=== PATIENT | female | born 1950 | race Caucasian/White ===

== ENCOUNTER 2018-08-29 09:54 | Inpatient (IN) | payer MEDICARE, OTHER ==
[~2018-08-29] VITALS: Ht 172.7 cm; Wt 92.4 kg
[2018-08-29] VITALS (9 sets, daily range): BP systolic 88–147; BP diastolic 46–68; PULSE 78–98; RESP 18–36; Ht 172.7 cm; Wt 92.4 kg
[2018-08-29] MEDS ORDERED: FUROSEMIDE 40 MG INJ IV STA (10:09)
[2018-08-29] MEDS ORDERED: NITROGLYCERIN 50 MG/D5W (PMX) 250 ML IV STA (10:09)
[2018-08-29] MEDS ORDERED: ALBUTEROL 0.083% (NEB) 2.5 MG/3 ML AMP HHN STA (10:11)
[2018-08-29] MEDS ORDERED: IPRATROPIUM (NEB) 0.5 MG/2.5 ML AMP HHN ONE (10:30)
[2018-08-29] MEDS ORDERED: ARIP5TAB14 PO (10:51)
[2018-08-29] MEDS ORDERED: POLY15DR25 BOTH EYES (10:58)
[2018-08-29] MEDS ORDERED: AZIT250T13 PO (11:00)
[2018-08-29] MEDS ORDERED: BENZ1LOZ52 MM (11:01)
[2018-08-29] MEDS ORDERED: [UNRECOGNIZED DRUG - CODE] BOTH EYES (11:01)
[2018-08-29] MEDS ORDERED: CEFEPIME 2GM/50 ML (PMX) 50 ML IVPB STA (11:02)
[2018-08-29] MEDS ORDERED: CLON-379 PO (11:02)
[2018-08-29] MEDS ORDERED: CYAN100092 IJ (11:03)
[2018-08-29] MEDS ORDERED: DIC20 PO (11:05)
[2018-08-29] MEDS ORDERED: VENL150C PO (11:06)
[2018-08-29] MEDS ORDERED: BISA10SU55 RC (11:06)
[2018-08-29] MEDS ORDERED: BISA-57 PO (11:06)
[2018-08-29] MEDS ORDERED: GABA300C16 PO (11:07)
[2018-08-29] MEDS ORDERED: LACTINEX PO (11:08)
[2018-08-29] MEDS ORDERED: LACT20SO2 PO (11:09)
[2018-08-29] MEDS ORDERED: LINA290C PO (11:10)
[2018-08-29] MEDS ORDERED: FURO40TA4 PO (11:10)
[2018-08-29] MEDS ORDERED: LORA0.5T PO ×2 (11:12)
[2018-08-29] MEDS ORDERED: MECL-77 PO (11:13)
[2018-08-29] MEDS ORDERED: LOSA100T15 PO (11:13)
[2018-08-29] MEDS ORDERED: MAGN400O19 PO (11:14)
[2018-08-29] MEDS ORDERED: POLY17PO6 PO (11:14)
[2018-08-29] MEDS ORDERED: MORP10DI10 SL (11:16)
[2018-08-29] MEDS ORDERED: MULTI PO (11:16)
[2018-08-29] MEDS ORDERED: HYDR-4012 PO (11:18)
[2018-08-29] MEDS ORDERED: AMLO5TAB4 PO (11:19)
[2018-08-29] MEDS ORDERED: POTA10TA37 PO (11:19)
[2018-08-29] MEDS ORDERED: PROT946L PO (11:20)
[2018-08-29] MEDS ORDERED: METO10TA3 PO (11:20)
[2018-08-29] MEDS ORDERED: GUAI5SYR2 PO (11:21)
[2018-08-29] MEDS ORDERED: LEVO-86 PO (11:22)
[2018-08-29] MEDS ORDERED: SIME80TA60 PO (11:22)
[2018-08-29] MEDS ORDERED: CALC600T24 PO (11:23)
[2018-08-29] MEDS ORDERED: ASCO500C7 PO (11:24)
[2018-08-29] MEDS ORDERED: ACET-2047 PO (11:24)
[2018-08-29] MEDS ORDERED: ONDA4TAB8 PO (11:25)
[2018-08-29] MEDS ORDERED: ALBU2.5V3 NEB (11:27)
--- NOTE | 2018-08-29 11:29 | ERD ---
ER Documentation Chief Complaint Chief Complaint BIB RA FOR EVAL OF SOB. CPAP ON ARRIVAL HPI This is a 68-year-old female who was brought in by ambulance for acute shortness of breath. She is presenting from [facility], she is a DNR patient, with selective treatments, which include antibiotics. In the field she was given nit roglycerin, as well as being started on positive pressure ventilation. She had no notable fever, history was limited secondary to acuity of her condition. ROS All systems reviewed and are negative except as per history of present illness. Medications Home Meds Reported Medications Ascorbic Acid* (Vitamin C*) 500 Mg Capsule.sa, 500 MG PO DAILY, CAP 08/29/18 Acetaminophen* (Acetaminophen*) 650 Mg Tablet, 650 MG PO Q4 PRN for PAIN LEVEL 1-3, #30 TAB AND FEVER 08/29/18 Calcium Carbonate* (Calcium Carbonate*) 600 MG Ca Tab, 600 MG PO DAILY, TAB 08/29/18 Levothyroxine Sodium* (Synthroid*) 100 Mcg Tablet, 100 MCG PO BEFORE BREAKFAST, #30 TAB 08/29/18 Simethicone* (Mylicon*) 80 Mg Tab, 80 MG PO Q6H PRN for DISTENSION/GAS/BLOATING, TAB 08/29/18 Guaifenesin-Dextromethorphan* (Robitussin* DM) 100MG/10MG/5ML Syrup, 10 ML PO Q4H PRN for COUGH, ML SUGAR FREE 08/29/18 Metoclopramide Hcl* (Metoclopramide Hcl*) 10 Mg Tablet, 10 MG PO BID PRN for NAUSEA AND OR VOMITING, TAB 08/29/18 Protein Supplement (Promod) 946 Ml Liquid, 30 ML PO BID 08/29/18 Potassium Chloride* (K-Dur*) 10 Meq Tab.prt.sr, 10 MEQ PO DAILY, TAB STOP 09-03-08/29/18 Amlodipine Besylate* (Norvasc*) 5 Mg Tablet, 5 MG PO DAILY, TAB HOLD FOR SBP IS <110 OR HR IS <60 08/29/18 Hydrocodone/Acetaminophen ([place] 7.5-325 Tablet) 1 Each Tablet, 1 EACH PO Q6 PRN for MODERATE PAIN 4-7, TAB 08/29/18 Multivitamins* (Theragran*) 1 Tab Tab, 1 TAB PO DAILY, TAB 08/29/18 Morphine Sulfate* (Morphine* Liq) 10 Mg/0.5 Ml Disp.syrin, 5 MG SL Q2H PRN for PAIN, ML 08/29/18 Polyethylene Glycol* (Miralax*) 17 Gm Powd.pack, 17 GM PO DAILY PRN for CONSTIPATION, #30 PACKET 08/29/18 Magnesium Hydroxide* (Milk Of Magnesia*) 400 Mg/5 Ml Oral.susp, 30 ML PO DAILY PRN for CONSTIPATION, ML 08/29/18 Meclizine Hcl* (Meclizine Hcl*) 25 Mg Tablet, 25 MG PO Q12 PRN for DIZZINESS, TAB 08/29/18 Losartan Potassium* (Losartan Potassium*) 100 Mg Tablet, 100 MG PO DAILY, TAB HOLD IF SBP IS <110 OR HR IS <60 08/29/18 Lorazepam* (Lorazepam*) 0.5 Mg Tablet, 0.5 MG PO Q4H WHILE AWAKE PRN for ANXIETY, TAB STOP 09-10-18 08/29/18 Lorazepam* (Lorazepam*) 0.5 Mg Tablet, 0.5 MG PO HS PRN for SLEEP, TAB 08/29/18 Linaclotide (LINZESS) 290 Mcg Capsule, 290 MCG PO DAILY, #30 CAP 08/29/18 Furosemide* (Furosemide*) 40 Mg Tablet, 40 MG PO DAILY, TAB STOP 09-02-18 08/29/18 Lactulose* (Lactulose*) 20 Gm/30 Ml Solution, 20 GM PO TID PRN for CONSTIPATION, ML 08/29/18 Lactobacillus Acidophilus* (Lactinex*) 1 Tab Chew, 1 TAB PO BID, TAB 08/29/18 Gabapentin* (Gabapentin*) 300 Mg Capsule, 300 MG PO TID, #90 CAP 08/29/18 Venlafaxine Hcl* (Effexor XR*) 150 Mg Cap.sr.24h, 150 MG PO QHS, CAP 08/29/18 Bisacodyl* (Dulcolax*) 5 Mg Tablet.dr, 5 MG PO BID, TAB 08/29/18 Bisacodyl (Dulcolax) 10 Mg Supp.rect, 10 MG RC DAILY PRN for CONSTIPATION, SUPP.RECT 08/29/18 Dicyclomine HCl (Dicyclomine HCl) 20 Mg Tablet, 20 MG PO QID 08/29/18 Cyanocobalamin (Vitamin B-12) (Cyanocobalamin Injection) 1,000 Mcg/1 Ml Vial, 1000 MCG IJ ONCE A MONTH, VIAL 08/29/18 Clonidine Hcl* (Clonidine Hcl*) 0.1 Mg Tab, 0.1 MG PO Q6 PRN for ELEVATED BLOOD PRESSURE, TAB GIVE IF SBP IS >165 08/29/18 Benzocaine/Menthol* (Cepacol* Sore Throat Lozenges) 1 Each Lozenge, 1 EACH MM Q4 PRN for SORE THROAT, LOZENGE 08/29/18 Hypromellose (EQ GENTLE) 30 Ml Drops, 1 DRP BOTH EYES BID PRN for DRY EYES, BOTTLE 08/29/18 Azithromycin* (Azithromycin*) 250 Mg Tablet, 250 MG PO DAILY, #4 TAB START 08-28-18 STOP 09-01-18 08/29/18 Aripiprazole* (Abilify*) 5 Mg Tab, 5 MG PO DAILY, #30 TAB 08/29/18 Discontinued Reported Medications Polyvinyl Alcohol (Tears Again) 15 Ml Drops, 1 DRP BOTH EYES BID PRN for DRY EYES, BOTTLE 08/29/18 Allergies Allergies: Coded Allergies: metronidazole (Verified Allergy, Unknown, 08/29/18) Uncoded Allergies: MILK PRODUCTS (Allergy, Unknown, 08/29/18) PMhx/Soc Hx Neurological Disorder: No Hx Respiratory Disorders: No Hx Cardiac Disorders: No Hx Psychiatric Problems: Yes (Anxiety, Depression) Hx Miscellaneous Medical Probl: Yes (Hypothyroidism, polyneuropathy, Pancreatic CA?) Smoking Status: Unknown if ever smoked Physical Exam Vitals Vital Signs Date Temp Pulse Resp B/P (MAP) Pulse Ox O2 O2 Flow FiO2 Time Delivery Rate 08/29/18 110 25 11:09 08/29/18 116 96 100 10:15 08/29/18 99.6 110 30 110/40 94 09:59 (63) Physical Exam Const: Patient appears severely distress, arrived on BiPAP machine Head: Atraumatic Eyes: Normal Conjunctiva ENT: Normal External Ears, Nose and Mouth. Neck: Full range of motion. No meningismus. Resp: Rales noted bilaterally, no expiratory wheeze Cardio: Tachycardia with regular rhythm, no murmurs, positive for JVD Abd: Soft, non tender, non distended. Normal bowel sounds Skin: No petechiae or rashes Back: No midline or flank tenderness Ext: No cyanosis, 1+ pitting edema Neur: Awake and alert Psych: Normal Mood and Affect Result Diagram: 08/29/18 1005 08/29/18 1005 Results 24 hrs Laboratory Tests Test 08/29/18 10:05 08/29/18 10:18 White Blood Count 30.5 10^3/ul Red Blood Count 3.65 10^6/ul Hemoglobin 9.6 g/dl Hematocrit 31.0 % Mean Corpuscular Volume 84.9 fl Mean Corpuscular Hemoglobin 26.3 pg Mean Corpuscular Hemoglobin Concent 31.0 g/dl Red Cell Distribution Width 16.2 % Platelet Count 280 10^3/UL Mean Platelet Volume 9.3 fl Immature Granulocytes % 4.800 % Neutrophils % 79.2 % Lymphocytes % 9.7 % Monocytes % 5.8 % Eosinophils % 0.0 % Basophils % 0.5 % Nucleated Red Blood Cells % 0.0 /100WBC Immature Granulocytes # 1.450 10^3/ul Neutrophils # 24.2 10^3/ul Lymphocytes # 3.0 10^3/ul Monocytes # 1.8 10^3/ul Eosinophils # 0.0 10^3/ul Basophils # 0.2 10^3/ul Nucleated Red Blood Cells # 0.0 10^3/ul Prothrombin Time 18.3 Sec Prothrombin Time Ratio 1.4 INR International Normalized Ratio 1.51 Activated Partial Thromboplast Time 46.3 Sec Urine Color YELLOW Urine Clarity CLEAR Urine pH 5.0 Urine Specific [place] 1.015 Urine Ketones NEGATIVE mg/dL Urine Nitrite NEGATIVE mg/dL Urine Bilirubin NEGATIVE mg/dL Urine Urobilinogen 2+ mg/dL Urine Leukocyte Esterase NEGATIVE La[place]/ul Urine Hemoglobin NEGATIVE mg/dL Urine Glucose NEGATIVE mg/dL Urine Total Protein NEGATIVE mg/dl Sodium Level 130 mmol/L Potassium Level 3.9 mmol/L Chloride Level 97 mmol/L Carbon Dioxide Level 21 mmol/L Anion Gap 12 Blood Urea Nitrogen 26 mg/dl Creatinine 1.07 mg/dl Est Glomerular Filtrat Rate mL/min 51 mL/min Glucose Level 137 mg/dl Calcium Level 8.2 mg/dl Total Bilirubin 0.9 mg/dl Direct Bilirubin 0.00 mg/dl Indirect Bilirubin 0.9 mg/dl Aspartate Amino Transf (AST/SGOT) 99 IU/L Alanine Aminotransferase (ALT/SGPT) 43 IU/L Alkaline Phosphatase 567 IU/L Troponin I Pending B-Type Natriuretic Peptide 2110 PG/ML Total Protein 7.6 g/dl Albumin 3.1 g/dl Globulin 4.50 g/dl Albumin/Globulin Ratio 0.68 POC Venous Lactate 3.6 mmol/L Current Medications Medications Dose Sig/Otoniel Start Time Status Last (Trade) Ordered Route PRN Stop Time Admin Dose Reason Admin 250 ml @ ONCE STAT 08/29/18 08/29/18 Nitroglycerin 12 mls/hr IV 10:09 10:34 / Dextrose 08/30/18 06:58 Furosemide 40 mg ONCE STAT 08/29/18 DC 08/29/18 (Lasix) IV 10:09 08/29/18 10:34 10:11 Albuterol 5 mg ONCE STAT 08/29/18 DC 08/29/18 (Proventil HHN 10:11 08/29/18 11:02 0.083% (Neb)) 10:34 Ipratropium 0.5 mg ONCE ONCE 08/29/18 DC 08/29/18 [place] HHN 10:30 08/29/18 11:02 (Atrovent 10:33 0.02% (Neb)) Cefepime HCl 50 ml @ ONCE STAT 08/29/18 100 mls/hr IVPB 11:02 08/29/18 11:31 Vancomycin 250 ml @ ONCE ONCE 08/29/18 HCl 125 mls/hr IVPB 11:30 08/29/18 13:29 Procedures/MDM This is a 68-year-old female presents for evaluation of shortness of breath. History and physical was concerning for respiratory distress secondary to acute congestive heart failure. She was given nitroglycerin in the field, her blood pressure was initially 101 systolic, she was started on IV Lasix, and was also started on nitroglycerin drip once her blood pressure had increased to 140 systolic. I noted that she had a leukocytosis of 30, and a positive lactate, given her risk factors she was then treated empirically for infection with vancomycin and cefepime. Given her presentation of volume overloaded status, I did not give her 30 cc/kg of IV fluids, as I feel that this would be detrimental to her. Patient will be continued on BiPAP, and a nitroglycerin drip as needed. Accepting Care Team: Current data and ongoing care discussed. Primary: [place] Consulting: None Outstanding Data: none Departure Diagnosis: Primary Impression: Shortness of breath Additional Impressions: CHF (congestive heart failure) Heart failure type: unspecified Heart failure chronicity: unspecified Qualified Codes: I50.9 - Heart failure, unspecified Respiratory distress Condition: Serious ORDAZ,BRISSA THRASHER Aug 29, 2018 11:29
[2018-08-29] MEDS ORDERED: VANCOMYCIN 1 GM (PMX) 250 ML IVPB ONE (11:30)
[2018-08-29] MEDS ORDERED: ACETAMINOPHEN 325 MG TAB PO PRN (12:00)
[2018-08-29] MEDS ORDERED: ONDANSETRON 4 MG INJ IV PRN (12:00)
--- NOTE | 2018-08-29 12:07 | CONS ---
Assessment/Plan Assessment/Plan Assessment/Plan (Daily) A/R: 1. sepsis, possibly pneumonia 2- Hx of hypothyroidism 3- HTN 4. DNR status. Continue current supportive care. Continue BiPAP. Obtain follow-up chest x-ray 24 hours. Continue current antimicrobial regimen. Consultation Date/Type/Reason Admit Date/Time Date of Consultation: Aug 29, 2018 Type of Consult Pulmonary Patient is a 68-year-old lady who has been transferred from [facility] with shortness of breath. Upon evaluation in the ER chest x-ray was done which is showing possible pneumonia in conjunction with significant elevation in leukocytosis. Patient has been placed on BiPAP with improvement in symptoms. Past medical history; 1. Dementia. 2. Hypertension. 3. Hypothyroidism. Medications; reviewed. Allergies; Flagyl. Family history; noncontributory. Occupational history; noncontributory. Review of systems; limited review of system could be obtained. Patient complains of shortness of breath. Denies any chest pain, fever, nausea, vomiting. Abdominal pain. General exam; elderly woman, on BiPAP. Awake. Appears in mild distress. Date/Time of Note DATE: 08/29/18 TIME: 12:03 Past Medical History Home Meds Reported Medications Albuterol Sulfate* (Albuterol Sulfate* Neb) 0.083%-3 Ml Neb, 2.5 MG NEB Q2H PRN for WHEEZING AND SOB, #30 VIAL 08/29/18 Ondansetron Hcl* (Zofran*) 4 Mg Tablet, 4 MG PO Q4 PRN for NAUSEA AND OR VOMITING, TAB 08/29/18 Ascorbic Acid* (Vitamin C*) 500 Mg Capsule.sa, 500 MG PO DAILY, CAP 08/29/18 Acetaminophen* (Acetaminophen*) 650 Mg Tablet, 650 MG PO Q4 PRN for PAIN LEVEL 1-3, #30 TAB AND FEVER 08/29/18 Calcium Carbonate* (Calcium Carbonate*) 600 MG Ca Tab, 600 MG PO DAILY, TAB 08/29/18 Levothyroxine Sodium* (Synthroid*) 100 Mcg Tablet, 100 MCG PO BEFORE BREAKFAST, #30 TAB 08/29/18 Simethicone* (Mylicon*) 80 Mg Tab, 80 MG PO Q6H PRN for DISTENSION/GAS/BLOATING, TAB 08/29/18 Guaifenesin-Dextromethorphan* (Robitussin* DM) 100MG/10MG/5ML Syrup, 10 ML PO Q4H PRN for COUGH, ML SUGAR FREE 08/29/18 Metoclopramide Hcl* (Metoclopramide Hcl*) 10 Mg Tablet, 10 MG PO BID PRN for NAUSEA AND OR VOMITING, TAB 08/29/18 Protein Supplement (Promod) 946 Ml Liquid, 30 ML PO BID 08/29/18 Potassium Chloride* (K-Dur*) 10 Meq Tab.prt.sr, 10 MEQ PO DAILY, TAB STOP 09-03-18 08/29/18 Amlodipine Besylate* (Norvasc*) 5 Mg Tablet, 5 MG PO DAILY, TAB HOLD FOR SBP IS <110 OR HR IS <60 08/29/18 Hydrocodone/Acetaminophen ([place] 7.5-325 Tablet) 1 Each Tablet, 1 EACH PO Q6 PRN for MODERATE PAIN 4-7, TAB 08/29/18 Multivitamins* (Theragran*) 1 Tab Tab, 1 TAB PO DAILY, TAB 08/29/18 Morphine Sulfate* (Morphine* Liq) 10 Mg/0.5 Ml Disp.syrin, 5 MG SL Q2H PRN for PAIN, ML 08/29/18 Polyethylene Glycol* (Miralax*) 17 Gm Powd.pack, 17 GM PO DAILY PRN for CONSTIPATION, #30 PACKET 08/29/18 Magnesium Hydroxide* (Milk Of Magnesia*) 400 Mg/5 Ml Oral.susp, 30 ML PO DAILY PRN for CONSTIPATION, ML 08/29/18 Meclizine Hcl* (Meclizine Hcl*) 25 Mg Tablet, 25 MG PO Q12 PRN for DIZZINESS, TAB 08/29/18 Losartan Potassium* (Losartan Potassium*) 100 Mg Tablet, 100 MG PO DAILY, TAB HOLD IF SBP IS <110 OR HR IS <60 08/29/18 Lorazepam* (Lorazepam*) 0.5 Mg Tablet, 0.5 MG PO Q4H WHILE AWAKE PRN for ANXIETY, TAB STOP 09-10-18 08/29/18 Lorazepam* (Lorazepam*) 0.5 Mg Tablet, 0.5 MG PO HS PRN for SLEEP, TAB 08/29/18 Linaclotide (LINZESS) 290 Mcg Capsule, 290 MCG PO DAILY, #30 CAP 08/29/18 Furosemide* (Furosemide*) 40 Mg Tablet, 40 MG PO DAILY, TAB STOP 09-02-18 08/29/18 Lactulose* (Lactulose*) 20 Gm/30 Ml Solution, 20 GM PO TID PRN for CONSTIPATION, ML 08/29/18 Lactobacillus Acidophilus* (Lactinex*) 1 Tab Chew, 1 TAB PO BID, TAB 08/29/18 Gabapentin* (Gabapentin*) 300 Mg Capsule, 300 MG PO TID, #90 CAP 08/29/18 Venlafaxine Hcl* (Effexor XR*) 150 Mg Cap.sr.24h, 150 MG PO QHS, CAP 08/29/18 Bisacodyl* (Dulcolax*) 5 Mg Tablet.dr, 5 MG PO BID, TAB 08/29/18 Bisacodyl (Dulcolax) 10 Mg Supp.rect, 10 MG RC DAILY PRN for CONSTIPATION, SUPP.RECT 08/29/18 Dicyclomine HCl (Dicyclomine HCl) 20 Mg Tablet, 20 MG PO QID 08/29/18 Cyanocobalamin (Vitamin B-12) (Cyanocobalamin Injection) 1,000 Mcg/1 Ml Vial, 1000 MCG IJ ONCE A MONTH, VIAL 08/29/18 Clonidine Hcl* (Clonidine Hcl*) 0.1 Mg Tab, 0.1 MG PO Q6 PRN for ELEVATED BLOOD PRESSURE, TAB GIVE IF SBP IS >165 08/29/18 Benzocaine/Menthol* (Cepacol* Sore Throat Lozenges) 1 Each Lozenge, 1 EACH MM Q4 PRN for SORE THROAT, LOZENGE 08/29/18 Hypromellose (EQ GENTLE) 30 Ml Drops, 1 DRP BOTH EYES BID PRN for DRY EYES, BOTTLE 08/29/18 Azithromycin* (Azithromycin*) 250 Mg Tablet, 250 MG PO DAILY, #4 TAB START 08-28-18 STOP 09-01-18 08/29/18 Aripiprazole* (Abilify*) 5 Mg Tab, 5 MG PO DAILY, #30 TAB 08/29/18 Discontinued Reported Medications Polyvinyl Alcohol (Tears Again) 15 Ml Drops, 1 DRP BOTH EYES BID PRN for DRY EYES, BOTTLE 08/29/18 Medications Current Medications Nitroglycerin/ Dextrose 250 ml @ 12 mls/hr ONCE STAT IV Last administered on 08/29/18at 10:34; Admin Dose 12 MLS/HR; Start 08/29/18 at 10:09; Stop 08/30/18 at 0 6:58 Vancomycin HCl 250 ml @ 125 mls/hr ONCE ONCE IVPB ; Start 08/29/18 at 11:30; Stop 08/29/18 at 13:29 Ondansetron HCl (Zofran Inj) 4 mg ER BRIDGE PRN IV NAUSEA/VOMITING; Start 08/29/18 at 12:00; Stop 08/30/18 at 11:59 Acetaminophen (Tylenol Tab) 650 mg ER BRIDGE PRN PO .MILD PAIN 1-3 OR TEMP; Sta rt 08/29/18 at 12:00; Stop 08/30/18 at 11:59 Allergies: Coded Allergies: metronidazole (Verified Allergy, Unknown, 08/29/18) Uncoded Allergies: MILK PRODUCTS (Allergy, Unknown, 08/29/18) Social History Smoking Status: Unknown if ever smoked Exam/Review of Systems Exam Vitals Vital Signs Date Temp Pulse Resp B/P (MAP) Pulse Ox O2 O2 Flow FiO2 Time Delivery Rate 08/29/18 115 26 135/107 93 CPAP 11:53 (116) 08/29/18 100 10:15 08/29/18 99.6 09:59 Exam H EENT exam; supple neck, no JVD. No lymphadenopathy. Midline trachea. Patient has carious teeth. CHEST: diminshed byt clear breath sounds, s1 S2 audible, no murmurs. ABD: soft. BS audible EXT: no edema [employer] : no deficit Results Result Diagram: 08/29/18 1005 08/29/18 1005 Results 24hrs Laboratory Tests Test 08/29/18 10:05 08/29/18 10:18 White Blood Count 30.5 H Red Blood Count 3.65 L Hemoglobin 9.6 L Hematocrit 31.0 L Mean Corpuscular Volume 84.9 Mean Corpuscular Hemoglobin 26.3 L Mean Corpuscular Hemoglobin Concent 31.0 L Red Cell Distribution Width 16.2 H Platelet Count 280 Mean Platelet Volume 9.3 Immature Granulocytes % 4.800 H Neutrophils % 79.2 H Lymphocytes % 9.7 L Monocytes % 5.8 Eosinophils % 0.0 Basophils % 0.5 Nucleated Red Blood Cells % 0.0 Immature Granulocytes # 1.450 H Neutrophils # 24.2 H Lymphocytes # 3.0 H Monocytes # 1.8 H Eosinophils # 0.0 Basophils # 0.2 H Nucleated Red Blood Cells # 0.0 Prothrombin Time 18.3 H Prothrombin Time Ratio 1.4 INR International Normalized Ratio 1.51 Activated Partial Thromboplast Time 46.3 H Urine Color YELLOW Urine Clarity CLEAR Urine pH 5.0 Urine Specific [place] 1.015 Urine Ketones NEGATIVE Urine Nitrite NEGATIVE Urine Bilirubin NEGATIVE Urine Urobilinogen 2+ H Urine Leukocyte Esterase NEGATIVE Urine Hemoglobin NEGATIVE Urine Glucose NEGATIVE Urine Total Protein NEGATIVE Sodium Level 130 L Potassium Level 3.9 Chloride Level 97 Carbon Dioxide Level 21 Anion Gap 12 Blood Urea Nitrogen 26 H Creatinine 1.07 H Est Glomerular Filtrat Rate mL/min 51 L Glucose Level 137 Calcium Level 8.2 L Total Bilirubin 0.9 Direct Bilirubin 0.00 Indirect Bilirubin 0.9 Aspartate Amino Transf (AST/SGOT) 99 H Alanine Aminotransferase (ALT/SGPT) 43 Alkaline Phosphatase 567 H Troponin I < 0.012 B-Type Natriuretic Peptide 2110 H Total Protein 7.6 Albumin 3.1 L Globulin 4.50 H Albumin/Globulin Ratio 0.68 POC Venous Lactate 3.6 *H Medications Medication Current Medications Nitroglycerin/ Dextrose 250 ml @ 12 mls/hr ONCE STAT IV Last administered on 08/29/18at 10:34; Admin Dose 12 MLS/HR; Start 08/29/18 at 10:09; Stop 08/30/18 at 06:58 Vancomycin HCl 250 ml @ 125 mls/hr ONCE ONCE IVPB ; Start 08/29/18 at 11:30; Stop 08/29/18 at 13:29 Ondansetron HCl (Zofran Inj) 4 mg ER BRIDGE PRN IV NAUSEA/VOMITING; Start 08/29/18 at 12:00; Stop 08/30/18 at 11:59 Acetaminophen (Tylenol Tab) 650 mg ER BRIDGE PRN PO .MILD PAIN 1-3 OR TEMP; Start 08/29/18 at 12:00; Stop 08/30/18 at 11:59 LIZABETH REDD 9, 2019 12:07
--- NOTE | 2018-08-29 14:41 | CONS ---
Consultation Date/Type/Reason Admit Date/Time Date/Time of Note DATE: 08/29/18 TIME: 14:41 Past Medical History Home Meds Reported Medications Albuterol Sulfate* (Albuterol Sulfate* Neb) 0.083%-3 Ml Neb, 2.5 MG NEB Q2H PRN for WHEEZING AND SOB, #30 VIAL 08/29/18 Ondansetron Hcl* (Zofran*) 4 Mg Tablet, 4 MG PO Q4 PRN for NAUSEA AND OR VOMITING, TAB 08/29/18 Ascorbic Acid* (Vitamin C*) 500 Mg Capsule.sa, 500 MG PO DAILY, CAP 08/29/18 Acetaminophen* (Acetaminophen*) 650 Mg Tablet, 650 MG PO Q4 PRN for PAIN LEVEL 1-3, #30 TAB AND FEVER 08/29/18 Calcium Carbonate* (Calcium Carbonate*) 600 MG Ca Tab, 600 MG PO DAILY, TAB 08/29/18 Levothyroxine Sodium* (Synthroid*) 100 Mcg Tablet, 100 MCG PO BEFORE BREAKFAST, #30 TAB 08/29/18 Simethicone* (Mylicon*) 80 Mg Tab, 80 MG PO Q6H PRN for DISTENSION/GAS/BLOATING, TAB 08/29/18 Guaifenesin-Dextromethorphan* (Robitussin* DM) 100MG/10MG/5ML Syrup, 10 ML PO Q4H PRN for COUGH, ML SUGAR FREE 08/29/18 Metoclopramide Hcl* (Metoclopramide Hcl*) 10 Mg Tablet, 10 MG PO BID PRN for NAUSEA AND OR VOMITING, TAB 08/29/18 Protein Supplement (Promod) 946 Ml Liquid, 30 ML PO BID 08/29/18 Potassium Chloride* (K-Dur*) 10 Meq Tab.prt.sr, 10 MEQ PO DAILY, TAB STOP 6-08/29/18 Amlodipine Besylate* (Norvasc*) 5 Mg Tablet, 5 MG PO DAILY, TAB HOLD FOR SBP IS <110 OR HR IS <60 08/29/18 Hydrocodone/Acetaminophen ([place] 7.5-325 Tablet) 1 Each Tablet, 1 EACH PO Q6 PRN for MODERATE PAIN 4-7, TAB 08/29/18 Multivitamins* (Theragran*) 1 Tab Tab, 1 TAB PO DAILY, TAB 08/29/18 Morphine Sulfate* (Morphine* Liq) 10 Mg/0.5 Ml Disp.syrin, 5 MG SL Q2H PRN for PAIN, ML 08/29/18 Polyethylene Glycol* (Miralax*) 17 Gm Powd.pack, 17 GM PO DAILY PRN for CONSTIPATION, #30 PACKET 08/29/18 Magnesium Hydroxide* (Milk Of Magnesia*) 400 Mg/5 Ml Oral.susp, 30 ML PO DAILY P RN for CONSTIPATION, ML 08/29/18 Meclizine Hcl* (Meclizine Hcl*) 25 Mg Tablet, 25 MG PO Q12 PRN for DIZZINESS, TAB 08/29/18 Losartan Potassium* (Losartan Potassium*) 100 Mg Tablet, 100 MG PO DAILY, TAB HOLD IF SBP IS <110 OR HR IS <60 08/29/18 Lorazepam* (Lorazepam*) 0.5 Mg Tablet, 0.5 MG PO Q4H WHILE AWAKE PRN for ANXIETY, TAB STOP 09-10-18 08/29/18 Lorazepam* (Lorazepam*) 0.5 Mg Tablet, 0.5 MG PO HS PRN for SLEEP, TAB 08/29/18 Linaclotide (LINZESS) 290 Mcg Capsule, 290 MCG PO DAILY, #30 CAP 08/29/18 Furosemide* (Furosemide*) 40 Mg Tablet, 40 MG PO DAILY, TAB STOP 09-02-18 08/29/18 Lactulose* (Lactulose*) 20 Gm/30 Ml Solution, 20 GM PO TID PRN for CONSTIPATION, ML 08/29/18 Lactobacillus Acidophilus* (Lactinex*) 1 Tab Chew, 1 TAB PO BID, TAB 08/29/18 Gabapentin* (Gabapentin*) 300 Mg Capsule, 300 MG PO TID, #90 CAP 08/29/18 Venlafaxine Hcl* (Effexor XR*) 150 Mg Cap.sr.24h, 150 MG PO QHS, CAP 08/29/18 Bisacodyl* (Dulcolax*) 5 Mg Tablet.dr, 5 MG PO BID, TAB 08/29/18 Bisacodyl (Dulcolax) 10 Mg Supp.rect, 10 MG RC DAILY PRN for CONSTIPATION, SUPP.RECT 08/29/18 Dicyclomine HCl (Dicyclomine HCl) 20 Mg Tablet, 20 MG PO QID 08/29/18 Cyanocobalamin (Vitamin B-12) (Cyanocobalamin Injection) 1,000 Mcg/1 Ml Vial, 1000 MCG IJ ONCE A MONTH, VIAL 08/29/18 Clonidine Hcl* (Clonidine Hcl*) 0.1 Mg Tab, 0.1 MG PO Q6 PRN for ELEVATED BLOOD PRESSURE, TAB GIVE IF SBP IS >165 08/29/18 Benzocaine/Menthol* (Cepacol* Sore Throat Lozenges) 1 Each Lozenge, 1 EACH MM Q4 PRN for SORE THROAT, LOZENGE 08/29/18 Hypromellose (EQ GENTLE) 30 Ml Drops, 1 DRP BOTH EYES BID PRN for DRY EYES, BOTTLE 08/29/18 Azithromycin* (Azithromycin*) 250 Mg Tablet, 250 MG PO DAILY, #4 TAB START 08-28-18 STOP 09-01-18 08/29/18 Aripiprazole* (Abilify*) 5 Mg Tab, 5 MG PO DAILY, #30 TAB 08/29/18 Discontinued Reported Medications Polyvinyl Alcohol (Tears Again) 15 Ml Drops, 1 DRP BOTH EYES BID PRN for DRY EYES, BOTTLE 08/29/18 Medications Current Medications Nitroglycerin/ Dextrose 250 ml @ 12 mls/hr ONCE STAT IV Last administered on 08/29/18at 10:34; Admin Dose 12 MLS/HR; Start 08/29/18 at 10:09; Stop 08/30/18 at 06:58 Ondansetron HCl (Zofran Inj) 4 mg ER BRIDGE PRN IV NAUSEA/VOMITING; Start 08/29/18 at 12:00; Stop 08/30/18 at 11:59 Acetaminophen (Tylenol Tab) 650 mg ER BRIDGE PRN PO .MILD PAIN 1-3 OR TEMP; Start 08/29/18 at 12:00; Stop 08/30/18 at 11:59 Allergies: Coded Allergies: metronidazole (Verified Allergy, Unknown, 08/29/18) Uncoded Allergies: MILK PRODUCTS (Allergy, Unknown, 08/29/18) Social History Smoking Status: Unknown if ever smoked Exam/Review of Systems Exam Vitals Vital Signs Date Temp Pulse Resp B/P (MAP) Pulse Ox O2 O2 Flow FiO2 Time Delivery Rate 08/29/18 102 30 93/71 (78) 98 BIPAP 14:32 08/29/18 100 10:15 08/29/18 99.6 09:59 Results Result Diagram: 08/29/18 1005 08/29/18 1005 Results 24hrs Laboratory Tests Test 08/29/18 10:05 08/29/18 10:18 08/29/18 12:21 08/29/18 13:12 White Blood Count 30.5 H Red Blood Count 3.65 L Hemoglobin 9.6 L Hematocrit 31.0 L Mean Corpuscular Volume 84.9 Mean Corpuscular 26.3 L Hemoglobin Mean Corpuscular 31.0 L Hemoglobin Concent Red Cell Distribution 16.2 H Width Platelet Count 280 Mean Platelet Volume 9.3 Immature Granulocytes % 4.800 H Neutrophils % 79.2 H Lymphocytes % 9.7 L Monocytes % 5.8 Eosinophils % 0.0 Basophils % 0.5 Nucleated Red Blood 0.0 Cells % Immature Granulocytes # 1.450 H Neutrophils # 24.2 H Lymphocytes # 3.0 H Monocytes # 1.8 H Eosinophils # 0.0 Basophils # 0.2 H Nucleated Red Blood 0.0 Cells # Prothrombin Time 18.3 H Prothrombin Time Ratio 1.4 INR International 1.51 Normalized Ratio Activated 46.3 H Partial Thromboplast Time Urine Color YELLOW Urine Clarity CLEAR Urine pH 5.0 Urine Specific [place] 1.015 Urine Ketones NEGATIVE Urine Nitrite NEGATIVE Urine Bilirubin NEGATIVE Urine Urobilinogen 2+ H Urine Leukocyte Esterase NEGATIVE Urine Hemoglobin NEGATIVE Urine Glucose NEGATIVE Urine Total Protein NEGATIVE Sodium Level 130 L Potassium Level 3.9 Chloride Level 97 Carbon Dioxide Level 21 Anion Gap 12 Blood Urea Nitrogen 26 H Creatinine 1.07 H Est Glomerular Filtrat 51 L Rate mL/min Glucose Level 137 Calcium Level 8.2 L Total Bilirubin 0.9 Direct Bilirubin 0.00 Indirect Bilirubin 0.9 Aspartate Amino 99 H Transf (AST/SGOT) Alanine 43 Aminotransferase (ALT/SG PT) Alkaline Phosphatase 567 H Troponin I < 0.012 B-Type Natriuretic 2110 H Peptide Total Protein 7.6 Albumin 3.1 L Globulin 4.50 H Albumin/Globulin Ratio 0.68 POC Venous Lactate 3.6 *H 4.3 *H Lactic Acid Level 5.1 *H Test 08/29/18 14:08 Lactic Acid Level 4.1 *H Medications Medication Current Medications Nitroglycerin/ Dextrose 250 ml @ 12 mls/hr ONCE STAT IV Last administered on 08/29/18at 10:34; Admin Dose 12 MLS/HR; Start 08/29/18 at 10:09; Stop 08/30/18 at 06:58 Ondansetron HCl (Zofran Inj) 4 mg ER BRIDGE PRN IV NAUSEA/VOMITING; Start 08/29/18 at 12:00; Stop 08/30/18 at 11:59 Acetaminophen (Tylenol Tab) 650 mg ER BRIDGE PRN PO .MILD PAIN 1-3 OR TEMP; Start 08/29/18 at 12:00; Stop 08/30/18 at 11:59 RYAN LOPEZ MD Aug 29, 2018 14:41
--- NOTE | 2018-08-29 16:41 | CONS ---
Assessment/Plan Assessment/Plan Assessment/Plan (Daily) 1. acute hyponatremia due to speis and CHF 2. acute kidney injury due to ATN and hemodynamics from CHF 3. acute CHF 4. Acute hypoxemic respiratory failure requiring BIPAP 5. H/o dementia 6. h/o Hypothyroidism 7. H/o HTN Plan: pt is currently seen in ED, telemetry admission orders has been done IV lasix 20mg BID, Pulmonary has been following for BIPAP IV abx cefepime and vancomycin for Sepsis and PNA Continue current care, ECHO to assess for EF and diastolic dysfunciton Thanks for consultation, I will continue to follow up Consultation Date/Type/Reason Admit Date/Time 08/29/2018 Date of Consultation: Aug 29, 2018 Type of Consult NEPHROLOGY Reason for Consultation Hyponatermia, acute kidney injury Requesting Provider: IDALMIS LOCKHART MD Date/Time of Note DATE: 08/29/18 TIME: 16:40 Hx of Present Illness 68-year-old F with H/O Dementia, HTN, Hypothyroidism who has been transferred from halfway with shortness of breath. Upon evaluation in the ER chest x- ray was done which is showing possible pneumonia in conjunction with significant elevation in leukocytosis. Patient has been placed on BiPAP with improvement in symptoms. pt was also transferred to [facility] drip - BUN/Cr 26/1.07. Na 130 on a dmission . renal has been consulted for hyponatremia, acute renal failure Constitutional: no complaints Eyes: no complaints ENT: no complaints Respiratory: pleuritic pain, shortness of breath Cardiovascular: no complaints Gastrointestinal: no complaints Genitourinary: no complaints Musculoskeletal: no complaints Skin: no complaints Neurologic: no complaints Endocrine: no complaints Lymphatic: no complaints Psychological: no complaints Immunologic: no complaints Past Medical History Medical History: high cholesterol, hypertension, hypothyroid, other (dementia ) Home Meds Reported Medications Albuterol Sulfate* (Albuterol Sulfate* Neb) 0.083%-3 Ml Neb, 2.5 MG NEB Q2H PRN for WHEEZING AND SOB, #30 VIAL 08/29/18 Ondansetron Hcl* (Zofran*) 4 Mg Tablet, 4 MG PO Q4 PRN for NAUSEA AND OR VOMITING, TAB 08/29/18 Ascorbic Acid* (Vitamin C*) 500 Mg Capsule.sa, 500 MG PO DAILY, CAP 08/29/18 Acetaminophen* (Acetaminophen*) 650 Mg Tablet, 650 MG PO Q4 PRN for PAIN LEVEL 1-3, #30 TAB AND FEVER 08/29/18 Calcium Carbonate* (Calcium Carbonate*) 600 MG Ca Tab, 600 MG PO DAILY, TAB 08/29/18 Levothyroxine Sodium* (Synthroid*) 100 Mcg Tablet, 100 MCG PO BEFORE BREAKFAST, #30 TAB 08/29/18 Simethicone* (Mylicon*) 80 Mg Tab, 80 MG PO Q6H PRN for DISTENSION/GAS/BLOATING, TAB 08/29/18 Guaifenesin-Dextromethorphan* (Robitussin* DM) 100MG/10MG/5ML Syrup, 10 ML PO Q4H PRN for COUGH, ML SUGAR FREE 08/29/18 Metoclopramide Hcl* (Metoclopramide Hcl*) 10 Mg Tablet, 10 MG PO BID PRN for NAUSEA AND OR VOMITING, TAB 08/29/18 Protein Supplement (Promod) 946 Ml Liquid, 30 ML PO BID 08/29/18 Potassium Chloride* (K-Dur*) 10 Meq Tab.prt.sr, 10 MEQ PO DAILY, TAB STOP 09-03-08/29/18 Amlodipine Besylate* (Norvasc*) 5 Mg Tablet, 5 MG PO DAILY, TAB HOLD FOR SBP IS <110 OR HR IS <60 08/29/18 Hydrocodone/Acetaminophen ([place] 7.5-325 Tablet) 1 Each Tablet, 1 EACH PO Q6 PRN for MODERATE PAIN 4-7, TAB 08/29/18 Multivitamins* (Theragran*) 1 Tab Tab, 1 TAB PO DAILY, TAB 08/29/18 Morphine Sulfate* (Morphine* Liq) 10 Mg/0.5 Ml Disp.syrin, 5 MG SL Q2H PRN for PAIN, ML 08/29/18 Polyethylene Glycol* (Miralax*) 17 Gm Powd.pack, 17 GM PO DAILY PRN for CONS TIPATION, #30 PACKET 08/29/18 Magnesium Hydroxide* (Milk Of Magnesia*) 400 Mg/5 Ml Oral.susp, 30 ML PO DAILY PRN for CONSTIPATION, ML 08/29/18 Meclizine Hcl* (Meclizine Hcl*) 25 Mg Tablet, 25 MG PO Q12 PRN for DIZZINESS, TAB 08/29/18 Losartan Potassium* (Losartan Potassium*) 100 Mg Tablet, 100 MG PO DAILY, TAB HOLD IF SBP IS <110 OR HR IS <60 08/29/18 Lorazepam* (Lorazepam*) 0.5 Mg Tablet, 0.5 MG PO Q4H WHILE AWAKE PRN for ANXIETY, TAB STOP 09-10-18 08/29/18 Lorazepam* (Lorazepam*) 0.5 Mg Tablet, 0.5 MG PO HS PRN for SLEEP, TAB 08/29/18 Linaclotide (LINZESS) 290 Mcg Capsule, 290 MCG PO DAILY, #30 CAP 08/29/18 Furosemide* (Furosemide*) 40 Mg Tablet, 40 MG PO DAILY, TAB STOP 09-02-18 08/29/18 Lactulose* (Lactulose*) 20 Gm/30 Ml Solution, 20 GM PO TID PRN for CONSTIPATION, ML 08/29/18 Lactobacillus Acidophilus* (Lactinex*) 1 Tab Chew, 1 TAB PO BID, TAB 08/29/18 Gabapentin* (Gabapentin*) 300 Mg Capsule, 300 MG PO TID, #90 CAP 08/29/18 Venlafaxine Hcl* (Effexor XR*) 150 Mg Cap.sr.24h, 150 MG PO QHS, CAP 08/29/18 Bisacodyl* (Dulcolax*) 5 Mg Tablet.dr, 5 MG PO BID, TAB 08/29/18 Bisacodyl (Dulcolax) 10 Mg Supp.rect, 10 MG RC DAILY PRN for CONSTIPATION, SUPP.RECT 08/29/18 Dicyclomine HCl (Dicyclomine HCl) 20 Mg Tablet, 20 MG PO QID 08/29/18 Cyanocobalamin (Vitamin B-12) (Cyanocobalamin Injection) 1,000 Mcg/1 Ml Vial, 1000 MCG IJ ONCE A MONTH, VIAL 08/29/18 Clonidine Hcl* (Clonidine Hcl*) 0.1 Mg Tab, 0.1 MG PO Q6 PRN for ELEVATED BLOOD PRESSURE, TAB GIVE IF SBP IS >165 08/29/18 Benzocaine/Menthol* (Cepacol* Sore Throat Lozenges) 1 Each Lozenge, 1 EACH MM Q4 PRN for SORE THROAT, LOZENGE 08/29/18 Hypromellose (EQ GENTLE) 30 Ml Drops, 1 DRP BOTH EYES BID PRN for DRY EYES, BOTTLE 08/29/18 Azithromycin* (Azithromycin*) 250 Mg Tablet, 250 MG PO DAILY, #4 TAB START 08-28-18 STOP 09-01-18 08/29/18 Aripiprazole* (Abilify*) 5 Mg Tab, 5 MG PO DAILY, #30 TAB 08/29/18 Discontinued Reported Medications Polyvinyl Alcohol (Tears Again) 15 Ml Drops, 1 DRP BOTH EYES BID PRN for DRY EYES, BOTTLE 08/29/18 Medications Current Medications Nitroglycerin/ Dextrose 250 ml @ 12 mls/hr ONCE STAT IV Last administered on 08/29/18at 10:34; Admin Dose 12 MLS/HR; Start 08/29/18 at 10:09; Stop 08/30/18 at 06:58 Ondansetron HCl (Zofran Inj) 4 mg ER BRIDGE PRN IV NAUSEA/VOMITING; Start 08/29/18 at 12:00; Stop 08/30/18 at 11:59 Acetaminophen (Tylenol Tab) 650 mg ER BRIDGE PRN PO .MILD PAIN 1-3 OR TEMP; Start 08/29/18 at 12:00; Stop 08/30/18 at 11:59 Furosemide (Lasix) 20 mg BID DIURETICS IV ; Start 08/29/18 at 18:00 Allergies: Coded Allergies: metronidazole (Verified Allergy, Unknown, 08/29/18) Uncoded Allergies: MILK PRODUCTS (Allergy, Unknown, 08/29/18) Past Surgical History Past Surgical Hx: other Family History Significant Family History: no pertinent family hx Social History Alcohol Use: none Smoking Status: Unknown if ever smoked Drug Use: none Exam/Review of Systems Exam Vitals Vital Signs Date Temp Pulse Resp B/P (MAP) Pulse Ox O2 O2 Flow FiO2 Time Delivery Rate 08/29/18 97.9 98 18 101/82 100 Mask 10.0 16:14 (88) 08/29/18 100 12:30 Constitutional: non-verbal, distress, other (on BIPAP) Head: normocephalic Eyes: nl conjunctiva Neck: supple, jvd Respiratory: congested cough, crackles/rales, diminished breath sounds Gastrointestinal: soft, non-tender Musculoskeletal: muscle weakness, swelling (1-2+ edema ) Neurological: lethargic Results Result Diagram: 08/29/18 1005 08/29/18 1005 Results 24hrs Laboratory Tests Test 08/29/18 10:05 08/29/18 10:18 08/29/18 12:21 08/29/18 13:12 White Blood Count 30.5 H Red Blood Count 3.65 L Hemoglobin 9.6 L Hematocrit 31.0 L Mean Corpuscular Volume 84.9 Mean Corpuscular 26.3 L Hemoglobin Mean Corpuscular 31.0 L Hemoglobin Concent Red Cell Distribution 16.2 H Width Platelet Count 280 Mean Platelet Volume 9.3 Immature Granulocytes % 4.800 H Neutrophils % 79.2 H Lymphocytes % 9.7 L Monocytes % 5.8 Eosinophils % 0.0 Basophils % 0.5 Nucleated Red Blood 0.0 Cells % Immature Granulocytes # 1.450 H Neutrophils # 24.2 H Lymphocytes # 3.0 H Monocytes # 1.8 H Eosinophils # 0.0 Basophils # 0.2 H Nucleated Red Blood 0.0 Cells # Prothrombin Time 18.3 H Prothrombin Time Ratio 1.4 INR International 1.51 Normalized Ratio Activated 46.3 H Partial Thromboplast Time Urine Color YELLOW Urine Clarity CLEAR Urine pH 5.0 Urine Specific [place] 1.015 Urine Ketones NEGATIVE Urine Nitrite NEGATIVE Urine Bilirubin NEGATIVE Urine Urobilinogen 2+ H Urine Leukocyte Esterase NEGATIVE Urine Hemoglobin NEGATIVE Urine Glucose NEGATIVE Urine Total Protein NEGATIVE Sodium Level 130 L Potassium Level 3.9 Chloride Level 97 Carbon Dioxide Level 21 Anion Gap 12 Blood Urea Nitrogen 26 H Creatinine 1.07 H Est Glomerular Filtrat 51 L Rate mL/min Glucose Level 137 Calcium Level 8.2 L Total Bilirubin 0.9 Direct Bilirubin 0.00 Indirect Bilirubin 0.9 Aspartate Amino 99 H Transf (AST/SGOT) Alanine 43 Aminotransferase (ALT/SG PT) Alkaline Phosphatase 567 H Troponin I < 0.012 B-Type Natriuretic 2110 H Peptide Total Protein 7.6 Albumin 3.1 L Globulin 4.50 H Albumin/Globulin Ratio 0.68 POC Venous Lactate 3.6 *H 4.3 *H Lactic Acid Level 5.1 *H Test 08/29/18 14:08 08/29/18 15:12 Lactic Acid Level 4.1 *H Procalcitonin 0.18 H Medications Medication Current Medications Nitroglycerin/ Dextrose 250 ml @ 12 mls/hr ONCE STAT IV Last administered on 08/29/18at 10:34; Admin Dose 12 MLS/HR; Start 08/29/18 at 10:09; Stop 08/30/18 at 06:58 Ondansetron HCl (Zofran Inj) 4 mg ER BRIDGE PRN IV NAUSEA/VOMITING; Start 08/29/18 at 12:00; Stop 08/30/18 at 11:59 Acetaminophen (Tylenol Tab) 650 mg ER BRIDGE PRN PO .MILD PAIN 1-3 OR TEMP; Start 08/29/18 at 12:00; Stop 08/30/18 at 11:59 Furosemide (Lasix) 20 mg BID DIURETICS IV ; Start 08/29/18 at 18:00 ALEXX HUTCHINS MD Aug 29, 2018 16:41
[2018-08-29] MEDS: FUROSEMIDE 20 MG INJ IV SCH (18:14)
--- NOTE | 2018-08-29 18:22 | CONS ---
DATE OF ADMISSION: 08/29/2018 DATE OF CONSULTATION: 08/29/2018 TYPE OF CONSULTATION: Cardiology. REASON FOR CONSULTATION: Shortness of breath, assess for congestive heart failure as well as Increas ed BNP, assess for congestive heart failure and abnormal electrocardiogram, assess for acute coronary syndrome. REQUESTING PHYSICIAN: Iadlmis Lockhart MD HISTORY OF PRESENT ILLNESS: Ms. Vazquez is a 68-year-old female with a history of malignant neoplasm of the pancreas, hypertension, hypothyroidism, schizoaffective disorder, depression who presented fro her chronic care facility with complaints of worsening shortness of breath. Initially upon arrival , temperature was 99.6, blood pressure 110/40, pulse 110, respiratory rate 30, satting 94%. The ethan ent's labs were notable for an INR of 1.51, a sodium of 130, potassium 3.9, creatinine of 1.07, BUN 2 6, GFR of 51, AST 99, ALT 43, troponin negative, BNP of 2110, lactic acid level of 3.6, white blood c ell count of 30.5, hemoglobin 9.6, platelet count of 280, UA borderline. The patient underwent a alpa st x-ray which revealed , chest without visible focal pneumonia, large volume of left upper quad rant gas. The patient's electrocardiogram revealed sinus tachycardia, rate 112, normal axis, normal intervals, nonspecific ST-T wave abnormalities. The patient had worsening hypoxia down 87% requiring initiation of BiPAP which she remains on at this time. PAST MEDICAL HISTORY: As above in HPI. MEDICATIONS CURRENTLY IN HOSPITAL: 1. Tylenol. 2. Zofran. 3. Vancomycin. 4. Cefepime. 5. Dose of Lasix. MEDICATIONS PRIOR TO ADMIT: 1. Azithromycin. 2. Albuterol. 3. Norvasc 5 mg daily. 4. Clonidine p.r.n. 5. Losartan 100 mg daily. 6. Tylenol. 7. Abilify. 8. Gabapentin. 9. Ativan. 10. Morphine. 11. Lasix 40 mg p.o. daily. 12. Potassium chloride 10 mEq daily. 13. Robitussin p.r.n. 14. Synthroid. 15. Vitamin C. ALLERGIES: FLAGYL. SOCIAL HISTORY: No current tobacco, EtOH or illicit drug use. FAMILY HISTORY: No history of sudden cardiac or early CAD. REVIEW OF SYSTEMS: As above in HPI. CONSTITUTIONAL: No fevers, chills. PULMONARY: Respiratory failure, on BiPAP. GASTROINTESTINAL: No vomiting. GENITOURINARY: No hematuria. MUSCULOSKELETAL: Degenerative joint disease. PSYCHIATRIC: Positive psych history. NEUROLOGIC: Altered mental state. PHYSICAL EXAMINATION: VITAL SIGNS: Temperature of 99.6, blood pressure most recently 93/71, pulse 102, respiratory rate 30 , satting 98% on BiPAP. GENERAL: The patient is awake, somewhat lethargic, minimally responsive to verbal commands. NECK: JVP is approximately 9 cm water. CHEST: Upper airway transmitted rhonchus sounds. There is decreased air movement throughout. HEART: Tachycardic, regular rhythm, normal S1, increased S2, I/ systolic murmur. ABDOMEN: Positive bowel sounds, soft. EXTREMITIES: No significant pitting edema, 1+ pulses bilateral posterior tibial. LABORATORY DATA: As above in HPI. No further labs for my review at this time. IMAGING STUDIES: As in HPI. No further imaging studies for my review at this time. ELECTROCARDIOGRAM: As above in HPI. No further electrocardiograms for my review at this time. IMPRESSION: 1. Increased BNP, shortness of breath, respiratory failure, assess for congestive heart failure. 2. History of hypertension with borderline hypotension at this time. 3. Respiratory failure on BiPAP. 4. Altered mental status. 5. Psychiatric disorder. 6. Prerenal state. 7. Severe leukocytosis. 8. Anemia. RECOMMENDATIONS: 1. At this time, the patient is to be admitted to the ICU and should remain on BiPAP, possible need for intubation. 2. The patient was placed on a nitroglycerin at this time, likely needs to be down titrated as the p atient is borderline hypotensive at this time. 3. Continue the patient's broad spectrum antibiotics and bronchodilators. 4. We will place the patient on gentle Lasix diuresis. 5. We will complete a rule out for myocardial infarction to ensure that patient's EKG abnormalities are chronic in nature and not due to any recent acute coronary syndromes. 6. We will check serial EKGs to assess for any significant ongoing changes; an EKG in morning, EKG f or complaints of chest pain or change in rhythm. 7. We will initiate the patient on gentle Lasix diuresis, following strict I's and O's, creatinine t o grade diuresis closely. Thank you for allowing me to take part in the care of this patient. I will continue to follow her ve ry closely with you with further recommendations to be made as the [facility]. Dictated By: ROSIO LANDA/REENA Conf#: [id number] DID#: [id number] CC: BRISSA ORDAZ MD; IDALMIS LOCKHART MD;*EndCC*
[2018-08-29] MEDS ORDERED: VANCOMYCIN IV PER PHARMACY XX SCH (19:00)
[2018-08-29] MEDS ORDERED: PENDING SANTYL ORDER FOR WOUND CARE XX PRN (19:00)
[2018-08-29] MEDS ORDERED: ACETAMINOPHEN 500 MG TAB PO PRN (19:00)
[2018-08-29] MEDS ORDERED: D5-NS + KCL 20 MEQ 1,000 ML IV SCH (19:30)
[2018-08-29] MEDS: ALBUTEROL/IPRATROPIUM (NEB) 3 ML AMP HHN SCH (20:23)
[2018-08-29] MEDS ORDERED: ALBUTEROL/IPRATROPIUM (NEB) 3 ML AMP HHN PRN (20:30)
[2018-08-29] MEDS: ENOXAPARIN 30 MG/0.3 ML SYG SC SCH (20:55)
[2018-08-29] MEDS ORDERED: VANCOMYCIN 750 MG (PMX) 250 ML IVPB SCH (21:00)
[2018-08-29] MEDS ORDERED: morphine 2 MG INJ IV PRN (21:03)
--- NOTE | 2018-08-29 21:04 | HP ---
Date/Time of Note Date/Time of Note DATE: 08/29/18 TIME: 12:07 Assessment/Plan VTE Prophylaxis SCD contraindicated: other Pharmacological prophylaxis: LMWH Pharm contraindication: other Lines/Catheters IV Catheter Type (from Nrsg): Saline Lock Assessment/Plan Assessment/Plan - Acute hypoxemic respiratory failure requiring BIPAP - admit to ICU - see admission orders - Pulmonary consult- Dr Neal notified - aspiration precautions - Respiratory failure on BiPAP. - Altered mental status 2/2 to above - Severe Leukocytosis w/ elevated Lactic Acid- 3.6 - ID Consult- Dr Daniels notified - IVF - Elevated BNP- of 2109, shortness of breath, respiratory failure, assess for congestive heart failure. - Cardiology consult- Dr Rodney notified - 2 -D Echo to assess cardiac functions- fu - CHD panel - History of hypertension with borderline hypotension at this time. - Acute kidney injury due to ATN and hemodynamics from CHF - Nephrology consult- Dr Carmela Alcantara notified - Acute hyponatremia possible 2/2 to sepeis and CHF - per nephro - Malignant Neoplasm of Pancrease - Hem/Onc consult- Dr Baron notified - Hx Psychiatric disorder- no acute issues - Anemia - Hgb stable -9.6 today . H/o dementia - h/o Hypothyroidism - on synthroid; will check TSH - Hx weight loss - dietary consult - Lovenox for DVT Prophylaxis Total time spend in ER- 50 mins. Patient seen in collaboration with Dr Hall. Staff. Result Diagram: 08/29/18 1005 08/29/18 1005 Results 24hrs Laboratory Tests Test 08/29/18 10:05 08/29/18 10:18 White Blood Count 30.5 H Red Blood Count 3.65 L Hemoglobin 9.6 L Hematocrit 31.0 L Mean Corpuscular Volume 84.9 Mean Corpuscular Hemoglobin 26.3 L Mean Corpuscular Hemoglobin Concent 31.0 L Red Cell Distribution Width 16.2 H Platelet Count 280 Mean Platelet Volume 9.3 Immature Granulocytes % 4.800 H Neutrophils % 79.2 H Lymphocytes % 9.7 L Monocytes % 5.8 Eosinophils % 0.0 Basophils % 0.5 Nucleated Red Blood Cells % 0.0 Immature Granulocytes # 1.450 H Neutrophils # 24.2 H Lymphocytes # 3.0 H Monocytes # 1.8 H Eosinophils # 0.0 Basophils # 0.2 H Nucleated Red Blood Cells # 0.0 Prothrombin Time 18.3 H Prothrombin Time Ratio 1.4 INR International Normalized Ratio 1.51 Activated Partial Thromboplast Time 46.3 H Urine Color YELLOW Urine Clarity CLEAR Urine pH 5.0 Urine Specific [place] 1.015 Urine Ketones NEGATIVE Urine Nitrite NEGATIVE Urine Bilirubin NEGATIVE Urine Urobilinogen 2+ H Urine Leukocyte Esterase NEGATIVE Urine Hemoglobin NEGATIVE Urine Glucose NEGATIVE Urine Total Protein NEGATIVE Sodium Level 130 L Potassium Level 3.9 Chloride Level 97 Carbon Dioxide Level 21 Anion Gap 12 Blood Urea Nitrogen 26 H Creatinine 1.07 H Est Glomerular Filtrat Rate mL/min 51 L Glucose Level 137 Calcium Level 8.2 L Total Bilirubin 0.9 Direct Bilirubin 0.00 Indirect Bilirubin 0.9 Aspartate Amino Transf (AST/SGOT) 99 H Alanine Aminotransferase (ALT/SGPT) 43 Alkaline Phosphatase 567 H Troponin I < 0.012 B-Type Natriuretic Peptide 2110 H Total Protein 7.6 Albumin 3.1 L Globulin 4.50 H Albumin/Globulin Ratio 0.68 POC Venous Lactate 3.6 *H HPI/ROS Admit Date/Time Admit Date/Time Hx of Present Illness HPI This is a 68-year-old female, a SNF resident from [facility] is admitted with complaints of worsening shortness of breath.. She is a DNR patient, with selective treatments, which include antibiotics.Patient has past history of hypertension, hypothyroidism, schizoaffective disorder, depression, malignant neoplasm of the Pancrease. She was given nitroglycerin, and was started on positive pressure ventilation by Paramedics. Her history was limited secondary to acuity of her condition. - temperature was 99.6, blood pressure 135/70, pulse 115, respiratory rate 26, 93 % - CPAP; FIO2 100%. - white blood cell count of 30.5, hemoglobin 9.6, platelet count of 280 - sodium of 130, potassium 3.9, creatinine of 1.07, BUN 26, GFR of 51 - INR of 1.51 - AST 99, ALT 43 - troponin negative - BNP of 2110 - lactic acid level of 3.6 - UA borderline. - chest x-ray which revealed- chest without visible focal pneumonia, large volume of left upper quadrant gas. - electrocardiogram revealed sinus tachycardia, rate 112, normal axis, normal intervals, nonspecific ST-T wave abnormalities. - The patient had worsening hypoxia down 87% requiring initiation of BiPAP which she remains on at this time. ROS All systems reviewed and are negative except as per history of present illness. Medications Home Meds Reported Medications Ascorbic Acid* (Vitamin C*) 500 Mg Capsule.sa, 500 MG PO DAILY, CAP 08/29/18 Acetaminophen* (Acetaminophen*) 650 Mg Tablet, 650 MG PO Q4 PRN for PAIN LEVEL 1-3, #30 TAB AND FEVER 08/29/18 Calcium Carbonate* (Calcium Carbonate*) 600 MG Ca Tab, 600 MG PO DAILY, TAB 08/29/18 Levothyroxine Sodium* (Synthroid*) 100 Mcg Tablet, 100 MCG PO BEFORE BREAKFAST, #30 TAB 08/29/18 Simethicone* (Mylicon*) 80 Mg Tab, 80 MG PO Q6H PRN for DISTENSION/GAS/BLOATING, TAB 08/29/18 Guaifenesin-Dextromethorphan* (Robitussin* DM) 100MG/10MG/5ML Syrup, 10 ML PO Q4H PRN for COUGH, ML SUGAR FREE 08/29/18 Metoclopramide Hcl* (Metoclopramide Hcl*) 10 Mg Tablet, 10 MG PO BID PRN for NAUSEA AND OR VOMITING, TAB 08/29/18 Protein Supplement (Promod) 946 Ml Liquid, 30 ML PO BID 08/29/18 Potassium Chloride* (K-Dur*) 10 Meq Tab.prt.sr, 10 MEQ PO DAILY, TAB STOP 09-03-08/29/18 Amlodipine Besylate* (Norvasc*) 5 Mg Tablet, 5 MG PO DAILY, TAB HOLD FOR SBP IS <110 OR HR IS <60 08/29/18 Hydrocodone/Acetaminophen ([place] 7.5-325 Tablet) 1 Each Tablet, 1 EACH PO Q6 PRN for MODERATE PAIN 4-7, TAB 08/29/18 Multivitamins* (Theragran*) 1 Tab Tab, 1 TAB PO DAILY, TAB 08/29/18 Morphine Sulfate* (Morphine* Liq) 10 Mg/0.5 Ml Disp.syrin, 5 MG SL Q2H PRN for PAIN, ML 08/29/18 Polyethylene Glycol* (Miralax*) 17 Gm Powd.pack, 17 GM PO DAILY PRN for CONSTIPATION, #30 PACKET 08/29/18 Magnesium Hydroxide* (Milk Of Magnesia*) 400 Mg/5 Ml Oral.susp, 30 ML PO DAILY PRN for CONSTIPATION, ML 08/29/18 Meclizine Hcl* (Meclizine Hcl*) 25 Mg Tablet, 25 MG PO Q12 PRN for DIZZINESS, TAB 08/29/18 Losartan Potassium* (Losartan Potassium*) 100 Mg Tablet, 100 MG PO DAILY, TAB HOLD IF SBP IS <110 OR HR IS <60 08/29/18 Lorazepam* (Lorazepam*) 0.5 Mg Tablet, 0.5 MG PO Q4H WHILE AWAKE PRN for ANXIETY, TAB STOP 09-10-18 08/29/18 Lorazepam* (Lorazepam*) 0.5 Mg Tablet, 0.5 MG PO HS PRN for SLEEP, TAB 08/29/18 Linaclotide (LINZESS) 290 Mcg Capsule, 290 MCG PO DAILY, #30 CAP 08/29/18 Furosemide* (Furosemide*) 40 Mg Tablet, 40 MG PO DAILY, TAB STOP 09-02-18 08/29/18 Lactulose* (Lactulose*) 20 Gm/30 Ml Solution, 20 GM PO TID PRN for CONSTIPATION, ML 08/29/18 Lactobacillus Acidophilus* (Lactinex*) 1 Tab Chew, 1 TAB PO BID, TAB 08/29/18 Gabapentin* (Gabapentin*) 300 Mg Capsule, 300 MG PO TID, #90 CAP 08/29/18 Venlafaxine Hcl* (Effexor XR*) 150 Mg Cap.sr.24h, 150 MG PO QHS, CAP 08/29/18 Bisacodyl* (Dulcolax*) 5 Mg Tablet.dr, 5 MG PO BID, TAB 08/29/18 Bisacodyl (Dulcolax) 10 Mg Supp.rect, 10 MG RC DAILY PRN for CONSTIPATION, SUPP.RECT 08/29/18 Dicyclomine HCl (Dicyclomine HCl) 20 Mg Tablet, 20 MG PO QID 08/29/18 Cyanocobalamin (Vitamin B-12) (Cyanocobalamin Injection) 1,000 Mcg/1 Ml Vial, 1000 MCG IJ ONCE A MONTH, VIAL 08/29/18 Clonidine Hcl* (Clonidine Hcl*) 0.1 Mg Tab, 0.1 MG PO Q6 PRN for ELEVATED BLOOD PRESSURE, TAB GIVE IF SBP IS >165 08/29/18 Benzocaine/Menthol* (Cepacol* Sore Throat Lozenges) 1 Each Lozenge, 1 EACH MM Q4 PRN for SORE THROAT, LOZENGE 08/29/18 Hypromellose (EQ GENTLE) 30 Ml Drops, 1 DRP BOTH EYES BID PRN for DRY EYES, BOTTLE 08/29/18 Azithromycin* (Azithromycin*) 250 Mg Tablet, 250 MG PO DAILY, #4 TAB START 08-28-18 STOP 09-01-18 08/29/18 Aripiprazole* (Abilify*) 5 Mg Tab, 5 MG PO DAILY, #30 TAB 08/29/18 Discontinued Reported Medications Polyvinyl Alcohol (Tears Again) 15 Ml Drops, 1 DRP BOTH EYES BID PRN for DRY EYES, BOTTLE 08/29/18 Allergies Allergies: Coded Allergies: metronidazole (Verified Allergy, Unknown, 08/29/18) Uncoded Allergies: MILK PRODUCTS (Allergy, Unknown, 08/29/18) ROS Subjective hx not possible: pt critical status Respiratory: shortness of breath PMH/Family/Social Past Medical History PMhx/Soc Hx Neurological Disorder: No Hx Respiratory Disorders: No Hx Cardiac Disorders: No Hx Psychiatric Problems: Yes (Anxiety, Depression) Hx Miscellaneous Medical Probl: Yes (Hypothyroidism, polyneuropathy, Pancreatic CA?) Smoking Status: Unknown if ever smoked Medications Current Medications Nitroglycerin/ Dextrose 250 ml @ 12 mls/hr ONCE STAT IV Last administered on 08/29/18at 10:34; Admin Dose 12 MLS/HR; Start 08/29/18 at 10:09; Stop 08/30/18 at 06:58 Vancomycin HCl 250 ml @ 125 mls/hr ONCE ONCE IVPB ; Start 08/29/18 at 11:30; Stop 08/29/18 at 13:29 Ondansetron HCl (Zofran Inj) 4 mg ER BRIDGE PRN IV NAUSEA/VOMITING; Start 08/29/18 at 12:00; Stop 08/30/18 at 11:59 Acetaminophen (Tylenol Tab) 650 mg ER BRIDGE PRN PO .MILD PAIN 1-3 OR TEMP; Start 08/29/18 at 12:00; Stop 08/30/18 at 11:59 Coded Allergies: metronidazole (Verified Allergy, Unknown, 08/29/18) Uncoded Allergies: MILK PRODUCTS (Allergy, Unknown, 6/9/19) Family History Significant Family History: cancer (mother- stomach and colon cancer), other ( No history of sudden cardiac or early CAD.) Social History No current tobacco, EtOH or illicit drug use. Alcohol Use: none Smoking Status: Former smoker (per SNF record) Drug Use: none Exam/Review of Systems Vital Signs Vitals Vital Signs Date Temp Pulse Resp B/P (MAP) Pulse Ox O2 O2 Flow FiO2 Time Delivery Rate 08/29/18 115 26 135/107 93 CPAP 11:53 (116) 08/29/18 100 10:15 08/29/18 99.6 09:59 Exam Constitutional: alert, distress, frail Psych: confusion Eyes: nl lids ENMT: nl external ears & nose Neck: non-tender Respiratory: crackles/rales, diminished breath sounds (at bases bilaterally) Cardiovascular: nl pulses, other (s1s2) Gastrointestinal: soft, non-tender Musculoskeletal: muscle weakness Extremities: edema Neurological: confused, other (alert; ) CASS LUCIANO Aug 29, 2018 12:17
[2018-08-29] MEDS ORDERED: LORAZEPAM 2 MG INJ IV PRN (21:30)
[2018-08-29] MEDS: NITROGLYCERIN 2% 1 GM OINT PKT TD SCH (22:00)
[2018-08-29] MEDS ORDERED: DEXTROSE 50% 50 ML SYRINGE ONE (22:52)
[2018-08-29] MEDS: CEFEPIME 1GM/50 ML (PMX) 50 ML IVPB SCH (23:10)
[2018-08-30] VITALS (10 sets, daily range): BP systolic 135–157; BP diastolic 58–81; PULSE 9–90; RESP 20–31
[2018-08-30] MEDS ORDERED: DEXTROSE 10%/0.45% NACL 1,000 ML IV SCH
[2018-08-30] MEDS: ALBUTEROL/IPRATROPIUM (NEB) 3 ML AMP HHN SCH ×2 (01:11→08:20)
[2018-08-30] MEDS ORDERED: DEXTROSE 50% 50 ML SYRINGE IV PRN (01:30)
[2018-08-30] MEDS: ACCU-CHEK XX SCH ×2 (05:42→09:04)
[2018-08-30] MEDS: FUROSEMIDE 20 MG INJ IV SCH (06:37)
[2018-08-30] MEDS: NITROGLYCERIN 2% 1 GM OINT PKT TD SCH (06:37)
[2018-08-30] MEDS: CEFEPIME 1GM/50 ML (PMX) 50 ML IVPB SCH (09:04)
[2018-08-30] MEDS: ENOXAPARIN 30 MG/0.3 ML SYG SC SCH (09:06)
[2018-08-30] MEDS ORDERED: SODIUM BICARBONATE (IV ADD) 100 MEQ in DEXTROSE 5% 1,000 ML IV SCH (10:00)
--- NOTE | 2018-08-30 10:52 | EN ---
Date/Time of Note Date/Time of Note DATE: 08/30/18 TIME: 10:47 Event Note Medicine Medicine Event Note Rapid response called for "agonal respiration" Briefly, this is a 68 yo woman with metastatic pancreatic cancer admitted last night from SNF for shortness of breath. She came from a SNF and is DNR/DNI with selective treatments. When I arrived, she is an obese woman minimally responsive in bed on full face bipap. She is saturating 100% but has agonal respirations. Pulse is 90s. There was no blood pressure available. On auscultation she has minimal air movement of the lungs, but no wheezing or crackles. Heart rate is rapid, no murmurs. CXR on admission shows patchy R lung infiltrates, possible pneumonia. I spoke to Dr. Hall on the phone who just recommended hospice eval. No upgrade to ICU. PLAN 1. No change in disease-directed therapy. No wheezing for which bronchodilators may help, no evidence of pulmonary edema for which diuretics may help. 2. Best course of action for palliation of dyspnea would be morphine gtt. Will leave this decision up to primary care team. 3. Keep on telemetry for now. In case comfort measures or in-hospital hospice is started, transfer to med/surg as per protocol. ROSIO SOTELO MD Aug 30, 2018 10:52
--- NOTE | 2018-08-30 11:29 | CONS ---
Assessment/Plan Assessment/Plan Assessment/Plan (Daily) 1. acute hyponatremia due to speis and CHF 2. acute kidney injury due to ATN and hemodynamics from CHF 3. acute CHF 4. Acute hypoxemic respiratory failure requiring BIPAP 5. H/o dementia 6. h/o Hypothyroidism 7. H/o HTN Plan: pt is currently seen in ED, telemetry admission orders has been done IV lasix 20mg BID, Pulmonary has been following for BIPAP IV abx cefepime and vancomycin for Sepsis and PNA not doign well, poor prognoiss, not a candidate for HD Consider hopce will sign off, call us if any questions Consultation Date/Type/Reason Admit Date/Time Aug 29, 2018 at 11:33 Initial Consult Date 08/29/18 Type of Consult NEPHROLOGY Requesting Provider: IDALMIS LOCKHART MD Date/Time of Note DATE: 08/30/18 TIME: 11:29 Exam/Review of Systems Exam Vitals Vital Signs Date Temp Pulse Resp B/P (MAP) Pulse Ox O2 O2 Flow FiO2 Time Delivery Rate 08/30/18 58 100 80 11:03 08/30/18 30 08:29 08/30/18 98.3 157/58 07:34 (91) 08/30/18 BIPAP 04:00 08/30/18 4.0 00:55 Intake and Output 08/29/18 08/29/18 08/30/18 1515:00 23:00 07:00 IntakeIntake Total 250 ml 480 ml OutputOutput Total 450 ml BalanceBalance 250 ml 30 ml Results Result Diagram: 08/30/18 0606 08/30/18 0606 Results 24hrs Laboratory Tests Test 08/29/18 12:21 08/29/18 13:12 08/29/18 14:08 08/29/18 15:12 Lactic Acid Level 5.1 *H 4.1 *H POC Venous 4.3 *H Lactate Procalcitonin 0.18 H Test 08/29/18 18:27 08/29/18 22:00 08/29/18 22:50 08/29/18 23:02 Troponin I < 0.012 Blood Gas Blood arterial Specimen Source Arterial Blood 08/29/2018 11:05:1 Date Drawn 7 PM Arterial Blood pH 7.132 *L (Temp corrected) Arterial Blood 30.9 L pCO2 (Temp correct) Arterial Blood 52.3 *L pO2 (Temp corrected) Arterial Blood 10.1 L HCO3 Arterial Blood -17.6 L Base Excess Arterial Blood 74.5 L Oxygen Saturation [place] Test ACCEPTAB Arterial Blood Right Radial Gas Puncture Site Arterial 0.5 Blood Carboxyhemo globin Arterial Blood 0.4 Methemoglobin Blood Gas A-a O2 341.5 H Differential Oxyhemoglobin 73.8 L Percent Blood Gas 37.0 Temperature Blood Gas 18.0 Respiration Rate Blood Gas Actual 40 Respiration Rate Blood Gas MASK - BIPAP Modality FiO2 60.0 Blood Gas 12 Pressure Support Blood Gas 09/11 IPAP/EPAP Ratio Blood Gas MOISE,E.R.N. Critical Value Read Back Blood Gas NAYE ARGUELLO Notified Whom Blood Gas 08/29/2018 11:17:0 Notified Time 3 PM Bedside Glucose 53 L 232 H Test 08/29/18 23:25 08/30/18 00:40 08/30/18 05:41 08/30/18 06:06 Bedside Glucose 149 76 Troponin I < 0.012 0.024 White Blood Count 30.9 H Red Blood Count 2.59 #L Hemoglobin 6.9 #*L Hematocrit 23.7 #L Mean Corpuscular 91.5 Volume Mean Corpuscular 26.6 L Hemoglobin Mean Corpuscular 29.1 L Hemoglobin Concen t Red Cell 16.8 H Distribution Width Platelet Count 132 #L Mean Platelet 10.4 Volume Immature 6.500 H Granulocytes % Neutrophils % Lymphocytes % Monocytes % Eosinophils % Basophils % Nucleated Red 0.0 Blood Cells % Immature 2.020 H Granulocytes # Neutrophils # Lymphocytes # Monocytes # Eosinophils # Basophils # Nucleated Red Blood Cells # Sodium Level 131 L Potassium Level 6.9 #*H Chloride Level 101 Carbon Dioxide 8 #*L Level Anion Gap 22 #H Blood Urea 33 H Nitrogen Creatinine 2.49 #H Est Glomerular 19 L Filtrat Rate mL/min Glucose Level 60 #L Calcium Level 7.0 L Total Bilirubin 0.6 Direct Bilirubin 0.00 Indirect 0.6 Bilirubin Aspartate Amino 3266 H Transf (AST/SGOT) Alanine 581 H Aminotransferase (ALT/SGPT) Alkaline 441 H Phosphatase Total Protein 5.9 #L Albumin 2.3 L Globulin 3.60 H Albumin/Globulin 0.63 Ratio Triglycerides 95 Level Cholesterol Level 63 L LDL Cholesterol, 34 Calculated HDL Cholesterol 10 L Cholesterol/HDL 6.3 Ratio Thyroid 3.600 Stimulating Hormone (TSH) Test 08/30/18 09:03 Bedside Glucose 79 Medications Medication Current Medications Furosemide (Lasix) 20 mg BID DIURETICS IV Last administered on 08/30/18 06:37; Admin Dose 20 MG; Start 08/29/18 at 18:00 Vancomycin HCl (Vanco Iv Per Pharmacy) VANCOMYCIN PER PHARMACY PER PROTOCOL XX ; Start 08/29/18 at 19:00 Cefepime HCl 50 ml @ 100 mls/hr Q12 IVPB Last administered on 08/30/18 09:04; Admin Dose 100 MLS/HR; Start 08/29/18 at 23:00 Enoxaparin Sodium (Lovenox) 30 mg DAILY SC Last administered on 08/30/18 09:06; Admin Dose 30 MG; Start 08/29/18 at 19:00 Nitroglycerin (Nitroglycerin 2% Oint) 1 inch Q8 TD Last administered on 08/30/18 06:37; Admin Dose 1 INCH; Start 08/29/18 at 22:00 Albuterol/ Ipratropium (Duoneb) 3 ml Q6H RESP THERAPY HHN Last administered on 08/30/18 08:20; Admin Dose 3 ML; Start 08/29/18 at 20:00 Miscellaneous Information (Pending [facility] Order For Wound Care) This patient thomas... PRN PRN XX WOUND CARE; Start 08/29/18 at 19:00 Potassium Chloride/Dextrose/ Sod Cl 1,000 ml @ 40 mls/hr Q24H IV Last administered on 08/29/18at 20:38; Admin Dose 40 MLS/HR; Start 08/29/18 at 19:30 Vancomycin/Sodium Chloride 250 ml @ 125 mls/hr Q12H IVPB Last administered on 08/29/18 20:35; Admin Dose 125 MLS/HR; Start 08/29/18 at 21:00; Status Hold Albuterol/ Ipratropium (Duoneb) 3 ml Q2H RESP THERAPY PRN HHN WHEEZING AND SOB; Start 08/29/18 at 20:30 Morphine Sulfate (morphine) 2 mg Q4H PRN IV SEVERE PAIN LEVEL 7-10; Start 08/29/18 at 21:03 Lorazepam (Ativan) 0.5 mg Q6H PRN IV AGITATION/ANXIETY Last administered on 08/29/18at 22:40; Admin Dose 0.5 MG; Start 08/29/18 at 21:30 Diagnostic Test (Pha) (Accu-Chek) 1 ea Q4 XX Last administered on 08/30/18at 09:04; Admin Dose 1 EA; Start 08/30/18 at 05:00 Sodium Bicarbonate 100 meq/Dextrose 1,000 ml @ 80 mls/hr [id number] IV ; Start 08/30/18 at 10:00 ALEXX HUTCHINS MD Aug 30, 2018 11:29
--- NOTE | 2018-08-30 14:21 | RADRPT ---
Echocardiogram Report Patient Name: JOHN NORTHPatient ID: [id number] : 1950 (68y 1m)Study Date: 08/30/2018 8:46:25 AM Gender: FAccession #: [id number] Tech: Yanet Mai [facility] Location: 529 Ref.Physician: CASS LUCIANO Height(Cm): BSA: Weight(Kg): Quality: Technically Difficult StudyOrder Physician: CASS LUCIANO Account #: Procedures: Echocardiographic Report: Transthoracic echocardiogram with complete 2D, M-Mode, and doppler examination. Indications: Congestive Heart Failure. Resp Distress. Measurements: 2D/M Mode Doppler Measurement Value Normal Range Measurement Value Normal Range LVIDd 2D 3.8 [ 3.8 - 5.2 ] cm AV Peak [place] 1.8 [ 100.0 - 170.0 ] cm/sec LVIDs 2D 2.1 [ 2.2 - 3.5 ] cm AV Peak PG 13.0 [ 2.0 - 9.0 ] mmHg LVPWd 2D 1.1 [ 0.6 - 0.9 ] cm LVOT Peak [place] 0.7 [ 70.0 - 110.0 ] cm/sec IVSd 2D 1.1 [ 0.6 - 0.9 ] cm LVOT Peak PG 2.0 [ 2.0 - 6.0 ] mmHg AoR Diam 2D 2.7 [ 2.3 - 3.1 ] cm MV E Peak [place] 0.6 [ 60.0 - 130.0 ] cm/sec EDV 2D 62.7 [ 46.0 - 106.0 ] ml MV A Peak [place] 0.7 [ 100.0 - 120.0 ] cm/sec ESV 2D 14.1 [ 14.0 - 42.0 ] ml MV E/A 0.9 [ 0.8 - 1.5 ] ratio EF 2D 77.5 [ 54.0 - 74.0 ] percent MV Decel Time 306 [ 104 - 258 ] msec LA Dimen 2D 3.4 [ 2.7 - 3.8 ] cm Lat E` Charles 0.1 [ 10.0 - 15.0 ] cm/sec LVOT Diam 2.5 [ 2.1 - 2.5 ] cm Lateral E/E` 5.4 [ 1.0 - 2.0 ] ratio MV E/A 0.9 [ 0.8 - 1.5 ] ratio TR Peak Charles 1.6 [ 100.0 - 280.0 ] cm/sec TR Peak PG 10.0 mmHg RVSP 18.0 [ 10.0 - 36.0 ] mmHg RA Pressure 8.0 mmHg Findings: Left Ventricle: Normal left ventricular systolic function. Normal left ventricular cavity size. Mild concentric left ventricular hypertrophy. Ejection fraction is visually estimated at 55-60 %. Tissue Doppler/Mitral Doppler indices are consistent with impaired relaxation (Stage I diastolic dysfunction). Right Ventricle: Normal right ventricular size. Normal right ventricular systolic function. Left Atrium: The left atrium is normal in size. Right Atrium: The right atrium is normal in size. Mitral Valve: Mild mitral leaflet calcification. Moderate mitral annular calcification. Trace mitral regurgitation. Aortic Valve: Mild aortic stenosis. No aortic regurgitation. Tricuspid Valve: Normal appearance of the tricuspid valve. The estimated Peak RVSP is 18 mmHg. There is trace tricuspid regurgitation. Pulmonic Valve: Normal pulmonic valve appearance. Pericardium: Normal pericardium with no significant pericardial effusion. Aorta: Normal aortic root. IVC: Inferior vena cava without respiratory collapse, however, patient on bipap. Conclusions: Normal left ventricular systolic function. Normal left ventricular cavity size. Mild concentric left ventricular hypertrophy. Ejection fraction is visually estimated at 55-60 %. Tissue Doppler/Mitral Doppler indices are consistent with impaired relaxation (Stage I diastolic dysfunction). Mild mitral leaflet calcification. Moderate mitral annular calcification. Trace mitral regurgitation. Mild aortic stenosis. No aortic regurgitation. Normal appearance of the tricuspid valve. The estimated Peak RVSP is 18 mmHg. There is trace tricuspid regurgitation. Electronically Signed By: Phil Rodney 2018-08-30 14:20:46 PDT
--- NOTE | 2018-08-30 16:32 | DES ---
DATE OF ADMISSION: 08/29/2018 DATE OF : 08/30/2018 DATE OF EXPIRY: 08/30/2018 at 11:31 a.m. CAUSE OF : Pancreatic cancer. COMORBIDITY: Possible gram-positive cocci with sepsis secondary to pneumonia. REASON FOR ADMISSION AND HOSPITAL COURSE: The patient was a 68-year-old female with history of pancr eatic cancer, hypertension, schizoaffective disorder who requested to be transferred to hospice care at [facility] back in July 2018. The patient, however, was noted to be complaining of shortness of breath an d was noted to be hypoxemic. She requested to be transferred to ER and was seen by Dr. Adam Rivera . The patient was in acute respiratory failure. Initial x-ray did not reveal any definitive pneumon ia; however, repeat x-ray done this morning did reveal possible evolving pneumonia. The patient's wh ite count was 30,000 with 80% neutrophils. The patient's lactic acid level was 3.6, which peaked to 5.1. The patient was started on IV vancomycin and cefepime for healthcare-acquired pneumonia. [facility] for congestive heart failure. The patient's procalcitonin level came back at 0.18. The patient was seen by Dr. Rodney from cardiac standpoint. Echo revealed EF of 55% to 6 0%. The patient continued to decline and developed acute kidney injury with potassium went up to 6.9 today. BUN was 33, creatinine 2.4. The patient also had elevated liver enzymes. On her initial est x-ray, there was a large volume of left upper quadrant gas found and a CT scan of the abdomen was ordered; however, the patient was too unstable. The patient was seen by Dr. Neal from [facility], Dr. Daniels from infectious disease standpoint, Dr. Carmela Alcantara from nephrology standpoint. Thi s morning, the patient had low critical H and H of 6.9/23.7. The patient was supposed to get 2 units of PRBC. PRBC transfusion orders were given. However, the patient continued to decline and was imm inently terminal. Hospice care was requested. The patient, however, was noted to have cardiopulmona ry arrest. The patient did not have any heart sounds or breath sounds. The patient was unresponsive . Pupils were fixed and dilated. The patient was pronounced at 11:31 a.m. on 08/30/2018. The patie nt prior to admission was DNR. At this time, nursing staff is unable to reach any family members. [facility] e [facility] was felt [facility] and had made herself a DNR. Dictated By: IDALMIS REED/REENA Conf#: [id number] DID#: [id number]
--- NOTE | 2018-08-31 16:55 | RADRPT ---
Vent Rate: 70 bpm RR Interval: 860 msec ME Interval: 187 msec QRS Duration: 113 msec QT Interval: 472 msec QTC Interval: 509 msec P-R-T [place]: 51 - 50 - 49 degrees Sinus rhythm...normal P axis, V-rate 50- 99 Prolonged QT interval...QTc >500mS Electronically Signed By: Brayden Oscar
== END 2018-08-30 11:31 | disposition expired | DRG 871 ==
LOC: E/R 09:54 → TEL 11:33 → EDBEDREQSVC 14:48 → TEL 17:32
PROVIDERS: ADMIT Internal Medicine; ATTEND Internal Medicine
DX: A41.81 Sepsis due to Enterococcus (principal); J18.9 Pneumonia, unspecified organism; N17.0 Acute kidney failure with tubular necrosis; J96.01 Acute respiratory failure with hypoxia; E87.1 Hypo-osmolality and hyponatremia; C25.9 Malignant neoplasm of pancreas, unspecified; A41.1 Sepsis due to other specified staphylococcus; Z66 Do not resuscitate; E03.9 Hypothyroidism, unspecified; I10 Essential (primary) hypertension; I50.9 Heart failure, unspecified; I46.9 Cardiac arrest, cause unspecified
CPT/HCPCS: 36415; 36600; 71045; 80053; 80061; 81003; 82803; 82962; 83605; 83880; 84145; 84443; 84484; 85025; 85610; 85730; 86850; 86900; 86901; 86920; 87081; 87086; 93005; 93306; 94640; 94660; 94664; 96374; 96375; J0692; J1650; J1940; J2060; J2270; J3370; J3480; J7070